=== PATIENT | female | born 1985 | race African-American/Black ===

== ENCOUNTER 2020-02-01 00:55 | Inpatient (IN) | payer OTHER ==
[2020-02-01] MEDS ORDERED: ELECTROLYTE-148 SOLN 500 ML IV ONE (01:20)
[2020-02-01] MEDS ORDERED: TERBUTALINE SULFATE 1 MG/1 ML VIAL SQ ONE (01:25)
[2020-02-01] MEDS ORDERED: ELECTROLYTE-148 SOLN 1,000 ML IV SCH (01:50)
[2020-02-01] MEDS ORDERED: morphine SULFATE/PF 0.5 MG/ML (2cc Syringe - QUVA) EP ONE (02:20)
[2020-02-01] MEDS ORDERED: ONDANSETRON 4 MG/2 ML VIAL IVPUSH PRN (02:20)
--- NOTE | 2020-02-01 02:31 | PD.OB.PROG ---
Past Medical History - Primary Care Physician Documenting Provider Type: Laborist - Admission Chief Complaint: contractions History of Present Illness: 34yo at 39-40 weeks presents with c/o contractions since 7pm. Pt writhing in pain unable to sit still. Pt believes she broke her water History Source: Patient Limitations to Obtaining History: Uncooperative - Nursing Documentation Hemorrhage Risk Assessment: high Nursing Documentation Reviewed: Yes - Past Medical History ...: 3 ...Para: 2 ...Term: 2 ...: 0 ...Spon : 0 ...Living Children: 2 - Past Surgical History Past Surgical History: Yes: Physical Exam - Obstetrical - Abdominal Exam/OB Fundal Height: 40 Number of Fetuses: Single Presentation: Vertex Contractions: Yes Intensity: Strong Monitor Mode: External Heart Rate (range): 80-120 Heart Rate Location: [facility] Category: II Decelerations: Variable - Vaginal Exam/OB Vaginal Bleeding: Yes, Heavy Dilatation (cm): 8 Effacement (%): 100 Amniotic Membrane Status: Ruptured Presentation: Vertex/Position Station: 0 Assessment/Plan 34yo at term concern for abruption vs uterine rupture primary provider called restoration silversmith to OR anesthesia, peds notified terb x 1 given type and cross x2 units
--- NOTE | 2020-02-01 02:36 | HP ---
Past Medical History - Admission Chief Complaint: contractions History of Present Illness: 34yo EDC 02/01 [facility] at 39.6 weeks presents with c/o painful contractions. Contractions started at 7pm. Pt reports rupture of membranes. Having vaginal bleeding that she reports started once she arrived here. PNC with Dr. Ocasio. Pt scheduled for rpt C/S on Sunday. History Source: Patient Limitations to Obtaining History: Uncooperative - Past Medical History ...: 4 ...Para: 2 ...Term: 2 ...: 0 ...Spon : 0 ...Living Children: 2 ...LMP: 04/28/19 ... Weeks Gestation by Dates: 39.6 ...EDC by Dates: 02/02/20 Heme/Onc: Yes: Anemia - Past Surgical History Past Surgical History: Yes: (2 previous c/s) Hx Myomectomy: No Hx Transabdominal Cerclage: No Family Medical History Family History: Unable to Obtain Review of Systems - Review of Systems Constitutional: reports: No Symptoms Eyes: reports: No Symptoms HENT: reports: No Symptoms Neck: reports: No Symptoms Cardiovascular: reports: No Symptoms Respiratory: reports: No Symptoms Gastrointestinal: reports: Abdominal Pain Genitourinary: reports: Vaginal Bleeding, Other (contractions, rupture of membranes) Breasts: reports: No Symptoms Reported Musculoskeletal: reports: No Symptoms Integumentary: reports: No Symptoms Neurological: reports: No Symptoms Endocrine: reports: No Symptoms Hematology/Lymphatic: reports: No Symptoms Psychiatric: reports: No Symptoms Pain Intensity: 10 Physical Exam - Maternity Constitutional: Yes: Moderate Distress, Severe Distress Eyes: Yes: WNL Neck: Yes: WNL - Abdominal Exam/OB Fundal Height: 40 Number of Fetuses: Single Presentation: Vertex Contractions: Yes Regularity: Regular Intensity: Strong Monitor Mode: External Heart Rate (range): 80-120 Heart Rate Location: [facility] Category: II - Vaginal Exam/OB Vaginal Bleeding: Yes, Fresh Blood Dilatation (cm): 8 Effacement (%): 100 Amniotic Membrane Status: Ruptured Presentation: Vertex/Position Station: 0 - Physical Exam Musculoskeletal: Yes: WNL Extremities: Yes: WNL Edema: No Hemorrhage Risk Assessment - Risk Factors Medium Risk Factors: Yes: Prior , uterine surgery,or multiple laparotomies, Hematocrit < 30% & other High Risk Factors: Yes: Active bleeding on admission Risk Score: 4 Risk Level: High Risk Assessment/Plan 34yo at 39.6 weeks active labor with suspicion for for abruption vs uterine rupture admit to labor and delivery type and cross x 2 units primary provider called and informed; pt to be taken to the OR emergently admission labs terb x 1 given anesthesia called peds called pt consented. Risks of bleeding, infection, need for transfusion, need for hysterectomy discussed. bomb loader to OR. Dr. Russell
--- NOTE | 2020-02-01 02:37 | PN ---
Progress Note (short form) - Note Progress Note: I assisted Dr. Russell at emergency c/section for the entirety of the case. \
[2020-02-01] MEDS ORDERED: METHYLERGONOVINE MALEATE 0.2 MG/1 ML AMP IM PRN (02:41)
[2020-02-01] MEDS ORDERED: CITRIC ACID/SODIUM CITRATE 30 ML UNIT-DOSE CUP PO ONE (02:41)
[2020-02-01 02:46] LABS: BASO % 0.6 % (0-2.0); EOS % 1.4 % (0-4.5); HEMATOCRIT 35.1 % (32.4-45.2); HEMOGLOBIN 11.7 GM/dL (10.7-15.3); LYMPH % 29.2 % (8-40); MCH 31.6 pg (25.7-33.7); MCHC 33.4 g/dl (32.0-36.0); MEAN CELL VOLUME 94.8 fl (80-96); MEAN PLT VOLUME 11.3 fl (7.5-11.1); MONO % 9.4 % (3.8-10.2); NEUT % 59.4 % (42.8-82.8); PLATELET COUNT 138 K/MM3 (134-434); WHITE BLOOD COUNT 9.3 K/mm3 (4.0-10.0)
[2020-02-01 02:57] LABS: INR 0.86 (0.83-1.09); PROTHROMBIN TIME (PATIENT) 10.1 SEC (9.7-13.0)
[2020-02-01 03:00] LABS: ACTIVATED PTT 25.4 SECONDS (25.2-36.5)
[2020-02-01 03:06] LABS: BLOOD UREA NITROGEN 9.8 mg/dL (7-18); CALCIUM 8.8 mg/dL (8.5-10.1); CREATININE 0.8 mg/dL (0.55-1.3); POTASSIUM 3.7 mmol/L (3.5-5.1)
[2020-02-01 04:29] VITALS: BMI 26.2
[2020-02-01] MEDS ORDERED: OXYTOCIN 20 UNITS in 0.9% NS 20 UNIT/1,000 ML INFUS.BAG IV ONE (05:30)
[2020-02-01 05:32] LABS: CORD BASE EXCESS -12.6 mmol/L (0-2); CORD HCO3 18.3 mmHg (20-29); CORD PCO2 61.4 mmHg (30-78)
[2020-02-01 05:36] LABS: CORD BASE EXCESS -11.1 mmol/L (0-2); CORD HCO3 20.1 mmHg (20-29); CORD PCO2 68.1 mmHg (30-78)
[2020-02-01 05:40] LABS: CORD pH 7.092 (7.14-7.44)
[2020-02-01 05:41] LABS: CORD pH 7.088 (7.14-7.44)
[2020-02-01] MEDS: OXYTOCIN 20 UNITS in 0.9% NS 20 UNIT/1,000 ML INFUS.BAG IV SCH ×2 (05:45→13:10)
[2020-02-01] MEDS: FERROUS SO4 325 MG TABLET (FP) PO SCH ×2 (10:05→22:27)
[2020-02-01] MEDS: PRENATAL VITAMINS W/ FOLIC ACID TABLET (FP) PO SCH (10:05)
--- NOTE | 2020-02-01 11:25 | PN ---
Progress Note (short form) - Note Progress Note: 34F s/p C/S under epidural anesthesia with duramorph. No new c/o. Pain rated 2-3 on NRS. Vital Signs Temp 98.4 F 02/01/20 06:10 Pulse 75 02/01/20 06:10 Resp 18 02/01/20 09:00 BP 136/72 02/01/20 06:10 Pulse Ox 99 02/01/20 06:10 Intake & Output 01/31/20 01/31/20 02/01/20 11:59 23:59 11:59 Intake Total 950 Output Total 900 Balance 50 Weight 143 lb Intake: IV 950 NORMAL SALINE+20 UNITS 950 OXYTOCIN - 20 unit In 1, 000 ml @ 125 mls/hr IV ASDIR [facility] Rx#:[id number] Output: Urine 900 Boothe 900 Other: Voiding Method Indwelling Catheter Height 5 ft 2 in Body Mass Index (BMI) 26.2 Weight 7 lb Length 19.5 in Weight Measurement Method Stated by Patient sitting in bed, NAD - No anesthesia complications
[2020-02-01] MEDS: IBUPROFEN 800 MG/8 ML IJ IVPB PRN (18:30)
[2020-02-01] MEDS: SENNOSIDES/DOCUSATE COMBO (SENNA PLUS) TABLET (UD) PO PRN (22:27)
[2020-02-02] MEDS ORDERED: BISACODYL 10 MG SUPP.RECT RC PRN (02:42)
[2020-02-02] MEDS: OXYTOCIN 20 UNITS in 0.9% NS 20 UNIT/1,000 ML INFUS.BAG IV SCH (02:49)
[2020-02-02] MEDS: IBUPROFEN 800 MG/8 ML IJ IVPB PRN (07:20)
--- NOTE | 2020-02-02 09:48 | PN ---
Progress Note (short form) - Note Progress Note: POD #!: s/p repeat c section; abruption placenta patient comfortable abdomen soft; dressing intact; dry lochia normal I/P: stable; cbc today OOB; d/c leon
[2020-02-02 10:20] LABS: BASO % 0.3 % (0-2.0); EOS % 1.6 % (0-4.5); HEMATOCRIT 33.9 % (32.4-45.2); HEMOGLOBIN 11.1 GM/dL (10.7-15.3); LYMPH % 11.3 % (8-40); MCH 30.8 pg (25.7-33.7); MCHC 32.8 g/dl (32.0-36.0); MEAN CELL VOLUME 93.9 fl (80-96); MEAN PLT VOLUME 10.2 fl (7.5-11.1); MONO % 5.2 % (3.8-10.2); NEUT % 81.6 % (42.8-82.8); PLATELET COUNT 141 K/MM3 (134-434); WHITE BLOOD COUNT 12.3 K/mm3 (4.0-10.0)
[2020-02-02] MEDS: FERROUS SO4 325 MG TABLET (FP) PO SCH ×2 (10:20→21:34)
[2020-02-02] MEDS: PRENATAL VITAMINS W/ FOLIC ACID TABLET (FP) PO SCH (10:20)
[2020-02-02] MEDS: IBUPROFEN 600 MG TABLET (FP) PO PRN ×2 (14:04→21:35)
[2020-02-02] MEDS: oxyCODONE HCL 5 MG TABLET PO PRN ×2 (14:05→23:19)
[2020-02-02] MEDS: ACETAMINOPHEN 325 MG TABLET (FP) PO PRN (21:35)
[2020-02-02] MEDS: SENNOSIDES/DOCUSATE COMBO (SENNA PLUS) TABLET (UD) PO PRN (21:36)
[2020-02-02] MEDS: SIMETHICONE 80 MG TAB.CHEW (FP) PO PRN ×2 (21:36→23:20)
--- NOTE | 2020-02-03 09:45 | DS ---
Physical Exam-PEER EDUCATOR Vital Signs: Vital Signs Temperature 97.9 F 02/02/20 22:00 Pulse Rate 64 02/02/20 22:00 Respiratory Rate 20 02/02/20 22:00 Blood Pressure 147/87 02/02/20 22:00 O2 Sat by Pulse Oximetry (%) 98 02/02/20 22:00 Constitutional: Yes: Well Nourished Eyes: Yes: WNL HENT: Yes: WNL Neck: Yes: WNL Cardiovascular: Yes: WNL Respiratory: Yes: Regular Internal Exam Deferred: Yes Uterus: Yes: Firm ....Post : Yes: Uterus non-tender Extremities: Yes: WNL Edema: No Labs: CBC, BMP 02/02/20 09:50 02/01/20 02:16 Delivery - Delivery Section: Repeat (abruptio placenta) Type of Anesthesia: Spinal Episiotomy/Laceration: None EBL (cc): 700 Delivery, Single - Stages of Labor Date 1st Stage Initiatied: 01/31/20 Time 1st Stage Initiated: 19:00 Date of Delivery: 02/01/20 Time of Delivery: 01:52 Time Placenta Delivered: 01:53 - Condition of Mobile Tester/Demand Manager Present: Yes Name: Tamara Allen Gender: Male Weight: 3.175 kg Position: Left, OT Total Hours ROM (Hrs/Mins): 48 minutes - 1 Minute Total Score: 8 5 Minutes Total Score: 9 - Feeding Plan Initial Plan: Elected not to breastfeed exclusively throughout hospitalization Remarks - Remarks Remarks: s/p repeat c section in labor with placenta abruptio CBC stable Discharge Summary Problems reviewed: Yes Reason For Visit: ADMIT C/S abruptio Procedures: Principal: repeat c section Hospital Course: abruptio Condition: Good - Instructions Diet, Activity, Other Instructions: regular Disposition: AGAINST MEDICAL ADVICE - Home Medications Comprehensive Discharge Medication List: Ambulatory Orders Vits96/Iron Fum/Folic [ Tablet] 1 each PO DAILY 02/01/20 Prescription Drug Monitoring Program (I-STOP) results: I-STOP reviewed and no issues identified (RTO 1 week)
[2020-02-03] MEDS: PRENATAL VITAMINS W/ FOLIC ACID TABLET (FP) PO SCH (09:49)
[2020-02-03] MEDS: FERROUS SO4 325 MG TABLET (FP) PO SCH (09:49)
[2020-02-03] MEDS: oxyCODONE HCL 5 MG TABLET PO PRN (11:59)
[2020-02-03] MEDS: ACETAMINOPHEN 325 MG TABLET (FP) PO PRN (11:59)
[2020-02-03] MEDS: SIMETHICONE 80 MG TAB.CHEW (FP) PO PRN (12:00)
[2020-02-03 14:04] VITALS: BP 160/80; PULSE 90; TEMP 98.1
[2020-02-03 14:38] LABS: BASO % 0.5 % (0-2.0); EOS % 3.1 % (0-4.5); HEMATOCRIT 34.3 % (32.4-45.2); HEMOGLOBIN 11.2 GM/dL (10.7-15.3); LYMPH % 15.9 % (8-40); MCH 31.2 pg (25.7-33.7); MCHC 32.6 g/dl (32.0-36.0); MEAN CELL VOLUME 95.7 fl (80-96); MEAN PLT VOLUME 9.2 fl (7.5-11.1); MONO % 7.6 % (3.8-10.2); NEUT % 72.9 % (42.8-82.8); PLATELET COUNT 173 K/MM3 (134-434); RBC 3.59 M/mm3 (3.60-5.2); RDW 13.3 % (11.6-15.6); WHITE BLOOD COUNT 9.4 K/mm3 (4.0-10.0)
--- NOTE | 2020-02-05 07:46 | OP ---
Operative Note - Note: Operative Date: 02/01/20 Pre-Operative Diagnosis: 34yl at 39 weeks pain, vaginal bleeding suspect uterine rupture vs abruption Operation: Repeat Low transverse Findings: viable male infant; meconium stained fluid; approximately 30% uterine abruption, bilateral adnexa wnl Post-Operative Diagnosis: Other (uterine abruption) Surgeon: Marian Russell French Comber: Yunier Ferguson Anesthesia: Spinal Estimated Blood Loss (mls): 800 Operative Report Dictated: Yes
--- NOTE | 2020-02-05 07:48 | PN ---
Delivery - Delivery Section: Repeat (abruptio placenta), Low Flap Transverse Type of Anesthesia: Spinal Episiotomy/Laceration: None EBL (cc): 700 Delivery, Single - Stages of Labor Date 1st Stage Initiatied: 01/31/20 Time 1st Stage Initiated: 19:00 Date of Delivery: 02/01/20 Time of Delivery: 01:52 Time Placenta Delivered: 01:53 Placenta: Yes: Manual Removal - Condition of Infant Triple Valve Tester/Experimental Display Builder Present: Yes Name: Tamara Allen Infant Gender: Male Weight: 7 lb Position: Left, OT Total Hours ROM (Hrs/Mins): 48 minutes - 1 Minute Total Score: 8 5 Minutes Total Score: 9 - Feeding Plan Initial Plan: Elected not to breastfeed exclusively throughout hospitalization Remarks - Remarks Remarks: rpt c/s performed without complications; uterine abruption noted upon entering of cavity.
--- NOTE | 2020-02-05 12:46 | OP ---
DATE OF OPERATION: DATE OF DICTATION: 02/05/2020 PREOPERATIVE DIAGNOSIS: A 34-year-old 4, para 2-0-1-2 at 39+ weeks for presents with painful contractions, vaginal bleeding and category 2 tracing, 8 cm dilated, suspect abruption versus uterine rupture. POSTOPERATIVE DIAGNOSIS: Placental abruption. PROCEDURE: Repeat low flap transverse section. SURGEON: Marian Russell MD EXECUTIVE COMPENSATION ANALYST: Yunier Ferguson MD ESTIMATED BLOOD LOSS: 800 mL FINDINGS: Viable male , cephalic presentation. Approximately 30% abruption noted in the placenta. Bilateral tubes and ovaries within normal limits. COMPLICATIONS: None. DESCRIPTION OF PROCEDURE: After informed consent was obtained, the patient was taken to the operating room where anesthesia was induced and found to be adequate. A Pfannenstiel skin incision was made with a scalpel, carried down to the underlying layer of fascia. The fascia was incised in the midline and the incision extended laterally using the Bovie. The muscles were and the peritoneum was entered bluntly and the peritoneal incision was extended bluntly as well. A bladder blade was placed. The vesicouterine peritoneum was identified, grasped and entered sharply with the Metzenbaum and was extended laterally. A bladder blade was placed and the uterine incision was made with a scalpel. The incision was extended bluntly. The infant's head was delivered and the shoulder and body were delivered without difficulty and atraumatically. The placenta was noted to have approximately a 30% abruption and it was delivered intact. It was manually removed and delivered intact with a 3-vessel cord. The uterus was cleared of clot and debris. The uterine incision was then repaired with 1 Vicryl in a running locked fashion with excellent hemostasis and catholic of anatomy. The peritoneum was closed with 2-0 Vicryl and then the fascia was closed with 0 Vicryl in a running fashion. The skin was closed in a subcuticular fashion and the patient tolerated the procedure well and was taken to the recovery room in stable condition. Annalisa [id number]
--- NOTE | 2020-02-06 17:20 | PATH ---
Surgical Pathology Report Patient Name: AMBER HARRIS [facility]. Rec. #: [id number] /Age/Gender: 1985 (Age: 34) / F Account: [id number] Location: [facility] OBS/LAMP CLEAN[address] STRE[address] LIGHT Taken: 02/01/2020 Received: 02/02/2020 Reported: 02/06/2020 Physicians: Annalisa Stubbs M.D. Specimen(s) Received PLACENTA Clinical History , SPAB 2014, 12/25, 06/29 Postoperative diagnosis: Repeat , abruption Final Diagnosis PLACENTA: THIRD TRIMESTER PLACENTA. TRIVASCULAR CORD. MEMBRANES WITH NO DIAGNOSTIC ABNORMALITIES. Electronically Signed Anisha Win M.D. Gross Description The specimen is received fresh labeled placenta and is a 469 gram, 19.5 x 16.0 x 2.5 cm. placenta with attached membranes and umbilical cord. The attached membranes are huntley, translucent with focal opacities and insert marginally. The umbilical cord measures 22 cm. in length and averages 1 cm. in diameter. The cord inserts eccentrically, 4.5 cm. to the nearest margin. No true knots or strictures are identified. Cut surface of the umbilical cord reveals 3 vessels. The surface is pandey-blue with minimal fibrin deposition and appropriate caliber vessels. The maternal surface is red-brown with focal defects. Sectioning reveals red-brown, spongy parenchyma. No lesions are identified. Family Helper sections are submitted in three cassettes as follows: 1- membrane rolls and umbilical cord; 2-3- full thickness sections of placenta. 02/03/2020 [facility]02/03/2020
== END 2020-02-03 15:45 | disposition left against medical advice (07) | DRG 540 ==
LOC: JLDR 00:55 → J3W 06:10
PROVIDERS: ADMIT Obstetrics & Gynecology; ATTEND Obstetrics & Gynecology
PROC: 10D00Z1 Extraction of Products of Conception, Low, Open Approach (ICD-10-PCS; principal; 2020-02-01)
DX: O82 Encounter for cesarean delivery without indication (principal); O45.93 Premature separation of placenta, unspecified, third trimester; Z3A.39 39 weeks gestation of pregnancy; Z37.0 Single live birth; O34.219 Maternal care for unspecified type scar from previous cesarean delivery; Z86.2 Personal history of diseases of the blood and blood-forming organs and certain disorders involving the immune mechanism
CPT/HCPCS: 36415; 36600; 80048; 82803; 84550; 85025; 85610; 85730; 86780; 86850; 86900; 86901; 88307-TC